=== PATIENT | female | born 1970 | race Caucasian/White ===

== ENCOUNTER → 2017-02-27 | Outpatient (CLI) | payer BC ==
--- NOTE | 2017-02-27 14:16 | MM ---
Reason for exam: screening (asymptomatic). Last mammogram was performed 2 years and 6 months ago. History: Family history of breast cancer in mother at age 80. Physical Findings: A clinical breast exam by your physician is recommended on an annual basis and results should be correlated with mammographic findings. MG Screening Mammo w CAD Bilateral CC and MLO view(s) were taken. Prior study comparison: August 30, 2014, bilateral MG screening mammo w CAD. February 23, 2013, bilateral digital screening mammo w/CAD. The breast tissue is heterogeneously dense. This may lower the sensitivity of mammography. There is no discrete abnormality. No significant changes when compared with prior studies. ASSESSMENT: Negative, BI-RAD 1 RECOMMENDATION: Routine screening mammogram of both breasts in 1 year.
== END ==
LOC: RADMAMWWP 12:33
PROVIDERS: ATTEND Obstetrics & Gynecology
DX: Z12.31 Encounter for screening mammogram for malignant neoplasm of breast (principal); Z80.3 Family history of malignant neoplasm of breast

== ENCOUNTER → 2018-03-31 | Outpatient (CLI) | payer BC ==
--- NOTE | 2018-03-31 12:01 | USB ---
Reason for exam: additional evaluation requested from abnormal screening. History: Family history of breast cancer in mother at age 80. Physical Findings: Nurse Summary: Patient complains of left breast pain before menstrual cysts upper outer quadrant (nurse mj). US Breast Workup Limited LT Left limited breast ultrasound including focal area of concern, retroareolar and axilla demonstrates a 0.8 x 0.5 x 0.3c oval cystic cluster at 12 o'clock, a 2.0 x 2.1 x 1.2cm oval, cystic cluster at 1 o'clock that correlates to mammographic finding and a 1.1 x 1.2 x 0.7cm oval, cystic lesion at 2 o'clock. These results were verbally communicated with the patient and result sheet given to the patient on 03/31/18. ASSESSMENT: Benign, BI-RAD 2 RECOMMENDATION: Return to routine screening mammogram schedule for both breasts.
== END | disposition home or self-care (01) ==
LOC: RADUSWWP 10:03
PROVIDERS: ATTEND Obstetrics & Gynecology
DX: R92.8 Other abnormal and inconclusive findings on diagnostic imaging of breast (principal)

== ENCOUNTER 2018-05-09 14:48 | Emergency (ER) | payer BC ==
[2018-05-09] MEDS ORDERED: KETOROLAC 30 MG/ML 1 ML VIAL IVP STA (16:54)
[2018-05-09] MEDS ORDERED: SODIUM CHLORIDE 0.9% 1,000 ML IV ONE (16:54)
--- NOTE | 2018-05-09 17:49 | ED ---
Extremity Problem HPI - General Chief complaint: Extremity Problem,Nontraumatic Stated complaint: Tingling hands and feet Time Seen by Provider: 05/09/18 16:41 Source: patient, RN notes reviewed, old records reviewed Mode of arrival: ambulatory Limitations: no limitations - History of Present Illness Initial comments: 47-year-old female multiple complaints complaining of the fever started 2 weeks ago. She also complains of a petechial-like rash over bilateral lower extremity 's. She saw a toddler lead teacher knee put her on steroids. Patient states she's been having diffuse joint pains within the hands and knees and elbows. She also complained of paresthesias down her legs. She states that she's had no recent fevers. She has been taking steroids since Friday she has a 12 day taper. 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 No blood work was obtained at that time. She denies any one focal cyst symptoms, denies any cough abdominal pain shortness of breath or chest pain. - Related Data Home Medications Medication Instructions Recorded Confirmed Cholecalciferol (Vitamin D3) 2,000 unit PO DAILY 03/04/18 05/09/18 [Vitamin D3] Acetaminophen [Tylenol Extra 500 mg PO BID PRN 05/09/18 05/09/18 Strength] predniSONE See Taper PO DIRECTED 05/09/18 05/09/18 Allergies Allergy/AdvReac Type Severity Reaction Status Date / Time codeine AdvReac Severe Nausea & Verified 05/09/18 17:56 Vomiting Review of Systems ROS Statement: Those systems with pertinent positive or pertinent negative responses have been documented in the HPI. ROS Other: All systems not noted in ROS Statement are negative. Past Medical History Past Medical History: No Reported History Additional Past Medical History / Comment(s): Seasonal allergies. 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 She has had to vaginal deliveries. History of Any Multi-Drug Resistant Organisms: None Reported Past Surgical History: Appendectomy, Breast Surgery, Tubal Ligation Additional Past Surgical History / Comment(s): appendix-1983,tub lig-1995 Past Psychological History: No Psychological Hx Reported Smoking Status: Never smoker Past Alcohol Use History: Occasional Past Drug Use History: None Reported - Past Family History Father Family Medical History: Cancer (lung,bone) Additional Family Medical History / Comment(s): lung,bone Mother Family Medical History: Cancer (breast at age82) Additional Family Medical History / Comment(s): breast General Exam - General Exam Comments Initial Comments: This is a 47-year-old female. Generally healthy. Alert and oriented. No significant distress. Limitations: no limitations Head exam: Present: atraumatic, normocephalic, normal inspection Eye exam: Present: normal appearance, PERRL, EOMI. Absent: scleral icterus, conjunctival injection, periorbital swelling ENT exam: Present: normal exam, mucous membranes moist Neck exam: Present: normal inspection. Absent: tenderness, meningismus, lymphadenopathy Respiratory exam: Present: normal lung sounds bilaterally. Absent: respiratory distress, wheezes, rales, rhonchi, stridor Cardiovascular Exam: Present: regular rate, normal rhythm, normal heart sounds. Absent: systolic murmur, diastolic murmur, rubs, gallop, clicks GI/Abdominal exam: Present: soft, normal bowel sounds. Absent: distended, tenderness, guarding, rebound, rigid Extremities exam: Present: normal inspection, full ROM, normal capillary refill , other (Patient has a sporadic small petechial-like rashes throughout the lower extremities past the knee.). Absent: tenderness, pedal edema, joint swelling, calf tenderness Back exam: Present: normal inspection Neurological exam: Present: alert, oriented X3, CN II-XII intact Psychiatric exam: Present: normal affect, normal mood Skin exam: Present: warm, dry, intact, normal color. Absent: rash Course Vital Signs 05/09/18 05/09/18 05/09/18 15:50 18:53 19:31 Temperature 98.1 F 98.2 F Pulse Rate 94 78 83 Respiratory 16 18 16 Rate Blood Pressure 151/91 149/85 154/96 O2 Sat by Pulse 97 98 96 Oximetry Medical Decision Making - Medical Decision Making 27-year-old female presents emergency Department with strange symptoms including a rash over bilateral extremities somewhat petechial-like, and diffuse joint pains and 1 day fever earlier in the week. She reports that she saw her toddler lead teacher and I have any thoughts on the rash. They did start her on steroids. She's been steroids for the past 4 days. The similar decided to pursue lab work. CBC and BMP are within normal limits. I did check for rheumatoid factor and AMA. Patient seems to have consultation symptoms consistent with an autoimmune disease. I also checked Lyme titers. At this time patient's vital signs are stable. I discussed case with Dr. Soria. He believes Patient may have contact dermatitis. At this time we will have the Patient follow-up with the vein specialist as well that she is appointment scheduled on Friday. Discussed return parameters. Patient understands treatment plan will comply. Return parameters were discussed. - Lab Data Result diagrams: 05/09/18 17:30 05/09/18 17:30 Lab Results 05/09/18 05/09/18 05/09/18 Range/Units 17:30 17:30 17:30 WBC 6.2 (3.8-10.6) k/uL RBC 4.62 (3.80-5.40) m/uL Hgb 14.4 (11.4-16.0) gm/dL Hct 43.2 (34.0-46.0) % MCV 93.7 (80.0-100.0) fL MCH 31.3 (25.0-35.0) pg MCHC 33.4 (31.0-37.0) g/dL RDW 12.5 (11.5-15.5) % Plt Count 277 (150-450) k/uL Neutrophils % 88 % Lymphocytes % 7 % Monocytes % 4 % Eosinophils % 0 % Basophils % 0 % Neutrophils # 5.5 (1.3-7.7) k/uL Lymphocytes # 0.5 L (1.0-4.8) k/uL Monocytes # 0.2 (0-1.0) k/uL Eosinophils # 0.0 (0-0.7) k/uL Basophils # 0.0 (0-0.2) k/uL Sodium 141 (137-145) mmol/L Potassium 4.1 (3.5-5.1) mmol/L Chloride 99 (98-107) mmol/L Carbon Dioxide 30 (22-30) mmol/L Anion Gap 12 mmol/L BUN 10 (7-17) mg/dL Creatinine 0.50 L (0.52-1.04) mg/dL Est GFR (CKD-EPI)AfAm >90 (>60 ml/min/1.73 sqM) Est GFR (CKD-EPI)NonAf >90 (>60 ml/min/1.73 sqM) Glucose 187 H (74-99) mg/dL Calcium 9.9 (8.4-10.2) mg/dL Total Bilirubin 0.5 (0.2-1.3) mg/dL AST 32 (14-36) U/L ALT 44 (9-52) U/L Alkaline Phosphatase 64 (38-126) U/L Total Protein 7.0 (6.3-8.2) g/dL Albumin 4.5 (3.5-5.0) g/dL Rheumatoid Factor (0-15) IU/mL Heterophile Antibody Negative (Negative) 05/09/18 Range/Units 17:30 WBC (3.8-10.6) k/uL RBC (3.80-5.40) m/uL Hgb (11.4-16.0) gm/dL Hct (34.0-46.0) % MCV (80.0-100.0) fL MCH (25.0-35.0) pg MCHC (31.0-37.0) g/dL RDW (11.5-15.5) % Plt Count (150-450) k/uL Neutrophils % % Lymphocytes % % Monocytes % % Eosinophils % % Basophils % % Neutrophils # (1.3-7.7) k/uL Lymphocytes # (1.0-4.8) k/uL Monocytes # (0-1.0) k/uL Eosinophils # (0-0.7) k/uL Basophils # (0-0.2) k/uL Sodium (137-145) mmol/L Potassium (3.5-5.1) mmol/L Chloride (98-107) mmol/L Carbon Dioxide (22-30) mmol/L Anion Gap mmol/L BUN (7-17) mg/dL Creatinine (0.52-1.04) mg/dL Est GFR (CKD-EPI)AfAm (>60 ml/min/1.73 sqM) Est GFR (CKD-EPI)NonAf (>60 ml/min/1.73 sqM) Glucose (74-99) mg/dL Calcium (8.4-10.2) mg/dL Total Bilirubin (0.2-1.3) mg/dL AST (14-36) U/L ALT (9-52) U/L Alkaline Phosphatase (38-126) U/L Total Protein (6.3-8.2) g/dL Albumin (3.5-5.0) g/dL Rheumatoid Factor 9 (0-15) IU/mL Heterophile Antibody (Negative) Disposition Clinical Impression: Rash and nonspecific skin eruption, Joint pain Disposition: HOME SELF-CARE Condition: Good Instructions: Dermatitis (ED) Additional Instructions: Patient advised to follow-up with primary care physician and pain specialist. Patient should take Motrin for pain. He can take Claritin and Benadryl. No hot showers. Return to the emergency department if any alarming signs or symptoms occur. Is patient prescribed a controlled substance at d/c from ED?: No When asked, does pt state using other controlled substances?: No If prescribed controlled substance>3 days was MAPS reviewed?: No If opioid is for acute pain is fill amount 7 days or less?: No If Rx opioid, was Start Talking consent form obtained?: No Referrals: Alfredo Camacho DO [Primary Care Provider] - 1-2 days Time of Disposition: 18:56
[2018-05-09 18:05] LABS: Basophils % (A) 0 %; Eosinophils % (A) 0 %; HCT 43.2 % (34.0-46.0); HGB 14.4 gm/dL (11.4-16.0); Lymphocytes # (A) 0.5 k/uL (1.0-4.8); Lymphocytes % (A) 7 %; MCH 31.3 pg (25.0-35.0); MCHC 33.4 g/dL (31.0-37.0); MCV 93.7 fL (80.0-100.0); Mean Platelet Volume 6.7; Monocytes # (A) 0.2 k/uL (0-1.0); Monocytes % (A) 4 %; Neutrophils # (A) 5.5 k/uL (1.3-7.7); Neutrophils % (A) 88 %; Platelet Count 277 k/uL (150-450); RBC 4.62 m/uL (3.80-5.40); RDW 12.5 % (11.5-15.5); WBC 6.2 k/uL (3.8-10.6)
[2018-05-09 18:24] LABS: ALT 44 U/L (9-52); AST 32 U/L (14-36); Albumin 4.5 g/dL (3.5-5.0); Alkaline Phosphatase 64 U/L (38-126); Anion Gap 12 mmol/L; Blood Urea Nitrogen 10 mg/dL (7-17); Calcium 9.9 mg/dL (8.4-10.2); Carbon Dioxide 30 mmol/L (22-30); Chloride 99 mmol/L (98-107); Glucose 187 mg/dL (74-99); Potassium 4.1 mmol/L (3.5-5.1); Sodium 141 mmol/L (137-145); Total Bilirubin 0.5 mg/dL (0.2-1.3)
[2018-05-09 19:33] VITALS: BP 154/96; PULSE 83; RESP 16; TEMP 98.2
[2018-05-09 22:55] LABS: Rheumatoid Factor 9 IU/mL (0-15)
== END 2018-05-09 19:35 | disposition home or self-care (01) ==
LOC: EC 14:48
DX: R21 Rash and other nonspecific skin eruption (principal); R50.9 Fever, unspecified; R20.2 Paresthesia of skin; M25.521 Pain in right elbow; M25.522 Pain in left elbow; M25.541 Pain in joints of right hand; M25.542 Pain in joints of left hand; M25.561 Pain in right knee; M25.562 Pain in left knee; Z79.52 Long term (current) use of systemic steroids; Z79.899 Other long term (current) drug therapy; Z88.5 Allergy status to narcotic agent
CPT/HCPCS: 36415; 80053; 85025; 86308; 86431; 86618; 86038; 99284; 96374; 96361; J1885

== ENCOUNTER → 2019-06-08 | Outpatient (CLI) | payer BC ==
[2019-06-08 11:10] VITALS: BP 142/87; PULSE 78; RESP 16; TEMP 98.2; BMI 20.5
--- NOTE | 2019-06-08 11:50 | P.HPOB ---
History of Present Illness H&P Date: 06/08/19 Chief Complaint: The patient is here for her routine gynecologic exam and ma mmogram. This is a 48-year-old G2 PII within LMP of 05/05/2019. She is status post tubal ligation. She is without gynecologic complaints and states her menstrual periods are regular. Review of Systems The patient's weight has been stable over the last year. She denies respiratory, cardiac, or G.I. problems. Past Medical History Past Medical History: No Reported History Additional Past Medical History / Comment(s): Seasonal allergies. Psoriatic arthritis. 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 She has had 2 vaginal deliveries. History of Any Multi-Drug Resistant Organisms: None Reported Past Surgical History: Appendectomy, Breast Surgery, Tubal Ligation Additional Past Surgical History / Comment(s): appendix-1983,tub lig-1995 Past Psychological History: No Psychological Hx Reported Smoking Status: Never smoker Past Alcohol Use History: Occasional (5 per week) Past Drug Use History: None Reported Additional History: She has been since 1998. She and her on a [employer]. - Past Family History Father Family Medical History: Cancer Additional Family Medical History / Comment(s): lung,bone Mother Family Medical History: Cancer Additional Family Medical History / Comment(s): breast cancer at age 82. Medications and Allergies Home Medications Medication Instructions Recorded Confirmed Type Cholecalciferol (Vitamin D3) 2,000 unit PO DAILY 03/04/18 06/08/19 History [Vitamin D3] Folic Acid 1 mg PO DAILY 06/08/19 06/08/19 History Methotrexate Sodium [Methotrexate] 12.5 mg PO WEEKLY 06/08/19 06/08/19 History Allergies Allergy/AdvReac Type Severity Reaction Status Date / Time codeine AdvReac Severe Nausea & Verified 05/09/18 17:56 Vomiting Exam Vital Signs Temp Pulse Resp BP Pulse Ox 06/08/19 11:06 98.2 F 78 16 142/87 96 Blood pressure 142/87, height 5'5", weight 123 pounds, BMI 21, temperature 98.2, pulse 78, pulse oximeter 96%. This is a well-developed well-nourished white female who is alert and oriented times 3 in no acute distress. HEENT: Within normal limits. NECK: Supple without mass or thyromegaly. CHEST AND LUNGS: Clear to auscultation. HEART: Regular rate and rhythm. BREASTS: Are without mass or discharge. AXILLARY EXAM: Negative for adenopathy. BACK: Negative for CVA tenderness. ABDOMEN: Soft, nontender, without palpable masses. PELVIC EXAM: Normal external genitalia. Cervix and vagina appear normal. There is no unusual discharge. There is no evidence of prolapse. The uterus is midposition, nongravid size and nontender. There are no palpable adnexal masses or tenderness. RECTAL EXAM: negative for mass or tenderness and is negative for occult blood. EXTREMITIES: Nontender. IMPRESSION: 1. 48-year-old female with normal gynecologic exam. 2. She is status post tubal sterilization. PLAN: 1. Pap smear was performed. 2. Self breast awareness was discussed with the patient. 3. Screening mammogram will be done today. 4. Osteoporosis prevention was discussed. I have stressed the importance of adequate calcium, vitamin D and regular exercise. Recommended amounts of calcium and vitamin D were also discussed. 5. Her mildly elevated blood pressure was discussed. I recommended that she check her own blood pressures at home on a regular basis and follow up with Dr. Camacho for blood pressure elevations. 6. She was advised to return in one year for her annual well woman exam.
--- NOTE | 2019-06-10 08:40 | MM ---
Reason for exam: screening (asymptomatic). Last mammogram was performed 1 year and 3 months ago. History: Family history of breast cancer in mother at age 80. Physical Findings: A clinical breast exam by your physician is recommended on an annual basis and results should be correlated with mammographic findings. MG Screening Mammo w CAD Bilateral CC and MLO view(s) were taken. Prior study comparison: March 04, 2018, bilateral MG screening mammo w CAD. February 27, 2017, bilateral MG screening mammo w CAD. The breast tissue is heterogeneously dense. This may lower the sensitivity of mammography. No suspicious calcifications are seen. Enlarging probable cysts upper ouer quadrant left breast. ASSESSMENT: Incomplete: need additional imaging evaluation, BI-RAD 0 RECOMMENDATION: Ultrasound of the left breast. [facility] will attempt to contact patient to return for ultrasound.
== END | disposition home or self-care (01) ==
LOC: WWCWWP 10:35
PROVIDERS: ATTEND Obstetrics & Gynecology
DX: Z12.31 Encounter for screening mammogram for malignant neoplasm of breast (principal)
CPT/HCPCS: 77067

== ENCOUNTER → 2019-06-22 | Outpatient (CLI) | payer BC ==
--- NOTE | 2019-06-22 11:45 | USB ---
Reason for exam: additional evaluation requested from abnormal screening. History: Family history of breast cancer in mother at age 80. Physical Findings: Nurse Summary: x 3 palpable (nurse kp). US Breast Workup Limited LT Left limited breast ultrasound including focal area of concern, retroareolar and axilla demonstrates a 0.7 x 0.4 x 0.5cm oval, cluster, cystic lesion at 12 o'clock BB, a 1.9 x 2.6 x 1.4cm oval, cluster, cystic lesion at 1 o'clock BB< a 1.9 x 2.2 x 1.1cm oval, cystic lesion at 2 o'clock BB, a 0.4 x 0.4 x 0.4cm oval, cystic lesion at the posterior nipple and a 1.5 x 1.3 x 0.6cm axilla nodes. All appear as benign cysts. These results were verbally communicated with the patient and result sheet given to the patient on 06/22/19. ASSESSMENT: Benign, BI-RAD 2 RECOMMENDATION: Return to routine screening mammogram schedule for both breasts.
== END | disposition home or self-care (01) ==
LOC: RADUSWWP 10:20
PROVIDERS: ATTEND Obstetrics & Gynecology
DX: R92.8 Other abnormal and inconclusive findings on diagnostic imaging of breast (principal)

== ENCOUNTER → 2019-11-24 | Outpatient (CLI) | payer BC ==
[2019-11-24 11:38] VITALS: BP 136/84; PULSE 106; RESP 16; TEMP 98.2
--- NOTE | 2019-11-24 12:22 | P.PN ---
Progress Note - Text Progress Note Date: 11/24/19 Chief Complaint: Left breast lump since yesterday. HPI: This is a 49-year-old with an LMP of approximately 11/05/2019. She is status post tubal ligation and states her menstrual periods are regular every month. Yesterday evening she noticed a lump in the left breast around the 12 o'clock position. She states the lump felt to be about quarter size and was raised. She denies any significant pain but the nipples seems sensitive. She denies any nipple discharge or bleeding. She thinks this size is slightly smaller today than it was yesterday. She has never had anything like this in the past. Her mother had breast cancer in her 80s. ROS: Weight has been stable. She denies respiratory, cardiac, or GI problems. PE: Blood pressure: 136/84, Height: 5 feet 5 inches, Weight: 124 pounds, Temperature: 98.2, Pulse: 106. Pulse oximeter 97%. This is a well developed, well nourished, White female who is alert and orientedx3, in no acute distress. Breast exam: There is a palpable breast mass at the 12 o'clock position approximately 3 cm superior to the areola. The mass measures 3.2 x 4.0 cm and is somewhat firm and nontender. It is minimally mobile. There are no other palpable masses in the breasts. Nipples are centrally inverted and the patient states they have been this way for many years. There is no nipple discharge. There is no unusual puckering or dimpling. Axillary exam is normal bilaterally. Additional studies: Screening mammogram done on 06/08/2019 required a left breast ultrasound which was done on 06/22/2019. The left breast ultrasound done at that time showed multiple small benign appearing cysts measuring approximately 2 cm or less. Impression: 1. 49-year-old premenopausal female with a 4 x 3 cm left breast mass which was a very recent development yesterday. Differential diagnosis will include benign breast cyst or other breast neoplasm. 2. Family history of breast cancer in her mother. Plan: 1. Left breast ultrasound will be done today. 2. Consider referral to a surgeon for evaluation after ultrasound. Time spent with the patient: 15 minutes
--- NOTE | 2019-11-24 13:11 | USB ---
Reason for exam: clinical finding. History: Family history of breast cancer in mother at age 80. Physical Findings: Dr. Diaz did breast exam. US Breast Limited LT Left limited breast ultrasound including focal area of concern, retroareolar and axilla demonstrates a 1.9 x 3.3 x 1.8cm cystic lesion at 1 o'clock and a 1.8 x 2.0 x 1.3cm cystic lesion at 2 o'clock. These results were verbally communicated with the patient and result sheet given to the patient on 11/24/19. ASSESSMENT: Benign, BI-RAD 2 RECOMMENDATION: Clinical management of the left breast. Manage patient on a clinical basis.
== END | disposition home or self-care (01) ==
LOC: WWCWWP 11:07
PROVIDERS: ATTEND Obstetrics & Gynecology
DX: N63.21 Unspecified lump in the left breast, upper outer quadrant (principal); N63.22 Unspecified lump in the left breast, upper inner quadrant

== ENCOUNTER → 2019-11-24 | Outpatient (CLI) | payer BC ==
[2019-11-24 13:06] VITALS: BP 136/84; PULSE 106; RESP 16; TEMP 98.2
--- NOTE | 2019-11-24 13:31 | P.GSHP ---
History of Present Illness H&P Date: 11/24/19 Chief Complaint: lump in left breast Denise is a 49 year old female who noted a swelling in her left breast last night. The patient states it is slightly tender. She has never had anything like this in the past. Nothing of concern in the right breast. The patient denies any trauma or infection in the breast. Her last mammogram was in May 2019. This was felt to be incomplete and an ultrasound of the left breast was recommended nothing radiographically of concern was identified in the right breast. Ultrasound of the left breast was performed and 8619. This revealed multiple cystic clusters. This was felt to be benign BIRADS 2 and routine screening of both breast was recommended. caffiene: pop, coffee/daily smoke: none chocolate: daily hormones: none takes over the counter medication for menopause Family History: mother: breast cancer in her 80's father: lung cancer Hormonl history: menarche: 12 , breast fed: no, first born at 23 menopause: still having regular periods BCP: 2 years hormones: none Past surgical history: 1. Appendectomy 2. Tonsillectomy Medical history: Negative Social history: Smoke: Negative Alcohol: Occasional Drugs: Negative - Constitutional Constitutional: Denies chills, Denies fever - EENT Eyes: denies blurred vision, denies pain Ears: bilateral: tinnitus, deny: decreased hearing Ears, nose, mouth and throat: Denies headache, Denies sore throat - Breasts Comment: history of breast cyst, - Cardiovascular Cardiovascular: Denies chest pain, Denies shortness of breath - Respiratory Respiratory: Denies cough, Denies 7 - Gastrointestinal Gastrointestinal: Denies abdominal pain, Denies diarrhea, Denies nausea, Denies vomiting - Genitourinary (Female) Genitourinary: Denies dysuria, Denies hematuria - Menstruation Menstruation: Reports period normal - Musculoskeletal Comment: Psoriatic arthritis, goes to physical therapy sciatica Musculoskeletal: Denies myalgias - Integumentary Integumentary: Denies pruritus, Denies rash - Neurological Comment: right foot sciatic nerve pain Neurological: Denies numbness, Denies weakness - Psychiatric Psychiatric: Denies anxiety, Denies depression - Endocrine Endocrine: Denies fatigue, Denies weight change - Hematologic/Lymphatic Comment: none - Allergic/Immunologic Allergic/Immunologic: Reports seasonal allergies Past Medical History Past Medical History: No Reported History Additional Past Medical History / Comment(s): Seasonal allergies. Psoriatic arthritis. 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 She has had 2 vaginal deliveries. History of Any Multi-Drug Resistant Organisms: None Reported Past Surgical History: Appendectomy, Breast Surgery, Tubal Ligation Additional Past Surgical History / Comment(s): appendix-1983,tub lig-1995 Past Psychological History: No Psychological Hx Reported Smoking Status: Never smoker Past Alcohol Use History: Occasional Past Drug Use History: None Reported - Past Family History Father Family Medical History: Cancer Additional Family Medical History / Comment(s): lung,bone Mother Family Medical History: Cancer Additional Family Medical History / Comment(s): breast cancer at age 82. Medications and Allergies Home Medications Medication Instructions Recorded Confirmed Type Cholecalciferol (Vitamin D3) 2,000 unit PO DAILY 03/04/18 11/24/19 History [Vitamin D3] Folic Acid 1 mg PO DAILY 06/08/19 11/24/19 History Methotrexate Sodium [Methotrexate] 12.5 mg PO WEEKLY 06/08/19 11/24/19 History Allergies Allergy/AdvReac Type Severity Reaction Status Date / Time codeine AdvReac Severe Nausea & Verified 11/24/19 12:59 Vomiting Surgical - Exam BMI 20.6 - General well developed, well nourished, no distress - Eyes normal ocular movement - ENT no hearing loss, no congestion - Neck no masses, trachea midline, no lymphadectomy, no venous distension - Respiratory normal expansion, normal respiratory effort, clear to auscultation - Cardiovascular Rhythm: regular Heart Sounds: normal: S1, S2 - Abdomen Abdomen: soft, non tender, no guarding, no rigid, no rebound - Integumentary normal turgor - Neurologic no disoriented, no combative - Musculoskeletal normal gait, normal posture - Psychiatric oriented to time, oriented to person, oriented to place, speech is normal, memory intact breast: Right breast: Multi-positional exam fibrocystic changes, no dominant masses or nodules of concern Right axilla: No adenopathy of concern Left breast: Multi-positional exam increased nodularity at the 12 o'clock position approximately 3 cm in size no dominant masses or nodules of concern otherwise Left axilla: No adenopathy of concern Results mammogram and ultrasound results reviewed Assessment and Plan Assessment: Impression: 1. mass left breast 2. fibrocystic breast changes 3. talked about fibro-cystic changes related to caffeine and theophylline 4. family history of breast cancer 5. familh history of cancer Plan: 1. aspiration of breast cyst left at 12:00 2. Patient counseled to decrease caffeine and theophylline intake 3. Patient will follow-up to 2 weeks to see if cyst has recurred CC: Dr. Camacho, Dr. Diaz encounter 30 minutes, > 50% of time spent in planning and counseling Time with Patient: Greater than 30
--- NOTE | 2019-11-24 13:35 | P.PCN ---
Date of Procedure: 11/24/19 Preoperative Diagnosis: Cyst left breast Postoperative Diagnosis: same Procedure(s) Performed: Aspiration cyst left breast Surgeon: Chela Abebe Pathology: other (breast fluid) Condition: stable Disposition: same day Indications for Procedure: painful mass left breast increased in size Operative Findings: yellow fluid Description of Procedure: The area of concern in the left breast was prepped using alcohol. A 22-gauge needle on a 10 mL syringe was used to aspirate the cystic lesion. The lesion was located in the 12 o'clock position. Approximately 5 mL of fluid was removed completely resolution of the cystic lesion. Patient tolerated procedure in stable condition. The cystic fluid was sent for pathology.
== END | disposition home or self-care (01) ==
LOC: WWCWWP 12:49
PROVIDERS: ATTEND Surgery
DX: N64.9 Disorder of breast, unspecified (principal)
CPT/HCPCS: 88108; 88305

== ENCOUNTER → 2021-05-08 | Outpatient (CLI) | payer BC ==
[2021-05-08 13:01] VITALS: BP 163/78; PULSE 81; RESP 18; TEMP 98.1
--- NOTE | 2021-05-08 13:51 | P.HPOB ---
History of Present Illness H&P Date: 05/08/21 Chief Complaint: The patient is here for her routine gynecologic exam and ma mmogram. This is a 50-year-old with an LMP of 05/05/2021. The patient states she has had about 4 yeast infections over the past year with some discharge and irritation. With her last yeast infection about 6 weeks ago, she took Diflucan with immediate relief. She is otherwise without complaints. Menstrual periods are regular every month. She denies hot flashes. She denies intermenstrual bleeding. Her last Pap smear done on 06/08/2019 was negative. Endometrial cells were noted, however her menstrual period started right about the time of her Pap smear testing. Review of Systems The patient has gained 9 pounds over the last year. She denies respiratory, cardiac, or G.I. problems. Past Medical History Past Medical History: No Reported History Additional Past Medical History / Comment(s): Seasonal allergies. Psoriatic arthritis. 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 She has had 2 vaginal deliveries. History of Any Multi-Drug Resistant Organisms: None Reported Past Surgical History: Appendectomy, Breast Surgery, Tubal Ligation Additional Past Surgical History / Comment(s): appendix-1983,tub lig-1995 Past Anesthesia/Blood Transfusion Reactions: No Reported Reaction Past Psychological History: No Psychological Hx Reported Smoking Status: Never smoker Past Alcohol Use History: Occasional (4 per week) Past Drug Use History: None Reported Additional History: She has been since 1998. She and her recently sold a [email or web address] business to their son. She does go to [place] during the winter. - Past Family History Father Family Medical History: Cancer Additional Family Medical History / Comment(s): lung,bone Mother Family Medical History: Cancer, Hypertension Additional Family Medical History / Comment(s): breast cancer at age 82. Medications and Allergies Home Medications Medication Instructions Recorded Confirmed Type Cholecalciferol (Vitamin D3) 2,000 unit PO DAILY 03/04/18 05/08/21 History [Vitamin D3] Folic Acid 1 mg PO DAILY 06/08/19 05/08/21 History metHOTREXate sodium [Methotrexate] 12.5 mg PO WEEKLY 06/08/19 05/08/21 History L.acidoph,Paracasei, B.lactis 1 each PO DAILY 06/22/21 06/22/21 History [Probiotic] Allergies Allergy/AdvReac Type Severity Reaction Status Date / Time codeine AdvReac Severe Nausea & Verified 05/08/21 12:52 Vomiting Exam Vital Signs Temp Pulse Resp BP Pulse Ox 05/08/21 12:53 98.1 F 81 18 163/78 100 Intake and Output 05/07/21 05/08/21 05/08/21 22:59 06:59 14:59 Other: Weight 59.874 kg Height 5 feet 5 inches, weight 132 pounds, BMI 22.0. This is a well-developed well-nourished white female who is alert and oriented times 3 in no acute distress. HEENT: Within normal limits. NECK: Supple without mass or thyromegaly. CHEST AND LUNGS: Clear to auscultation. HEART: Regular rate and rhythm. BREASTS: Are without mass or discharge. There is bilateral central nipple inversion which the patient states she has had for many years. AXILLARY EXAM: Negative for adenopathy. BACK: Negative for CVA tenderness. ABDOMEN: Soft, nontender, without palpable masses. PELVIC EXAM: Normal external genitalia. Cervix and vagina appear normal with minimal atrophy. There is no unusual discharge. There is no evidence of prolapse. The uterus is midposition, nongravid size and nontender. There are no palpable adnexal masses or tenderness. RECTAL EXAM: Rectovaginal exam is negative for mass or tenderness and is negative for occult blood. EXTREMITIES: Nontender. IMPRESSION: 1. 50-year-old perimenopausal female who is status post tubal ligation, with normal gynecologic exam. 2. Several yeast infections during the past year per the patient with no significant physical findings at this time and she is currently not having symptoms at this time. 3. Elevated blood pressure. PLAN: 1. Pap smear was deferred since she had a negative Pap smear and 06/08/2019. 2. Self breast awareness was discussed with the patient. 3. Screening mammogram was done today. 4. Diflucan 150 mg by mouth once if she develops typical yeast infection symptoms including discharge and irritation. She was instructed to call to be seen if she is not having typical symptoms or if she has several yeast infections. The prescription will be sent to [facility] pharmacy on [address] [facility]. There will be 2 refills. 5. Osteoporosis prevention was discussed. I have stressed the importance of adequate calcium, vitamin D and regular exercise. Recommended amounts of calcium and vitamin D were also discussed. 6. I have recommended screening colonoscopy. She states she will discuss this with her primary care physician and have them arrange for colorectal cancer screening. 7. We have discussed her elevated blood pressure. I have recommended that she check her own blood pressure on a regular basis and to follow up with her primary care physician regarding elevated blood pressures. She states she has been told on several occasions that her blood pressure was elevated. 8. She will keep track of her menstrual periods and call if menstrual problems. 9. She was advised to return in one year for her annual well woman exam.
--- NOTE | 2021-05-09 13:53 | MM ---
Reason for exam: screening (asymptomatic). Last mammogram was performed 1 year and 11 months ago. History: Family history of breast cancer in mother at age 80. Physical Findings: A clinical breast exam by your physician is recommended on an annual basis and results should be correlated with mammographic findings. MG Screening Mammo w CAD Bilateral CC and MLO view(s) were taken. Prior study comparison: June 08, 2019, bilateral MG screening mammo w CAD. March 04, 2018, bilateral MG screening mammo w CAD. February 27, 2017, bilateral MG screening mammo w CAD. The breast tissue is extremely dense which could obscure a lesion on mammography. Focal asymmetry left upper outer quadrant, stable. No significant changes when compared with prior studies. ASSESSMENT: Benign, BI-RAD 2 RECOMMENDATION: Routine screening mammogram of both breasts in 1 year.
== END ==
LOC: WWCWWP 12:37
PROVIDERS: ATTEND Obstetrics & Gynecology
DX: Z12.31 Encounter for screening mammogram for malignant neoplasm of breast (principal); Z01.419 Encounter for gynecological examination (general) (routine) without abnormal findings; R03.0 Elevated blood-pressure reading, without diagnosis of hypertension; Z98.51 Tubal ligation status; Z80.3 Family history of malignant neoplasm of breast; Z78.0 Asymptomatic menopausal state; Z88.5 Allergy status to narcotic agent
CPT/HCPCS: 77067

== ENCOUNTER → 2024-11-16 | Outpatient (CLI) | payer BC ==
--- NOTE | 2024-11-16 10:20 | P.PN ---
Progress Note - Text Progress Note Date: 11/16/24 Patient has called and states she believes she has a yeast infection. She has gone throughout this year without another yeast infection. She has a slight discharge without color and vulvar itching. Suspected Carla vaginitis. Plan: Diflucan 150 mg p.o. every 48 hours x 2 doses. The patient states she has her annual well woman examination on 11/30/2024. The electronic prescription will be sent to [facility] pharmacy on [facility]
== END ==
LOC: WWCWWP 08:59
PROVIDERS: ATTEND Obstetrics & Gynecology
DX: B37.9 Candidiasis, unspecified (principal); Z88.5 Allergy status to narcotic agent

== ENCOUNTER → 2024-11-30 | Outpatient (CLI) | payer BC ==
[2024-11-30 11:05] VITALS: BP 155/91; PULSE 81; RESP 17; TEMP 97.9
--- NOTE | 2024-11-30 11:26 | P.HPOB ---
History of Present Illness H&P Date: 11/30/24 Chief Complaint: The patient is here for her routine gynecologic exam and ma mmogram. This is a 54-year-old G2, P2 with an LMP of August 2024. The patient is status post tubal ligation. She states her menstrual periods have spaced out even more and have been about every 2 to 3 months during the past year. She denies any significant hot flashes. She was recently treated for a yeast infection about 2 weeks ago and this has improved. Review of Systems The patient's weight has been stable over the last year. She denies respiratory, cardiac, or G.I. problems. Past Medical History Past Medical History: No Reported History Additional Past Medical History / Comment(s): Seasonal allergies. Psoriatic arthritis. 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 She has had 2 vaginal deliveries. History of Any Multi-Drug Resistant Organisms: None Reported Past Surgical History: Appendectomy, Breast Surgery, Tubal Ligation Additional Past Surgical History / Comment(s): appendix-1983,tub lig-1995. Breast cyst aspiration. Past Anesthesia/Blood Transfusion Reactions: No Reported Reaction Past Psychological History: No Psychological Hx Reported Smoking Status: Never smoker Past Alcohol Use History: Occasional (About 4 to 6 drinks per week.) Past Drug Use History: None Reported Additional History: She has been since 1998. She and her are retired and they typically go to [place] for the winter. - Past Family History Father Family Medical History: Cancer Additional Family Medical History / Comment(s): lung,bone Mother Family Medical History: Cancer, Hypertension Additional Family Medical History / Comment(s): breast cancer at age 82. Medications and Allergies Home Medications Medication Instructions Recorded Confirmed Type Cholecalciferol (Vitamin D3) 2,000 unit PO DAILY 03/04/18 03/25/23 History [Vitamin D3] L.acidoph,Paracasei, B.lactis 1 each PO DAILY 05/08/21 03/25/23 History [Probiotic] Allergies Allergy/AdvReac Type Severity Reaction Status Date / Time codeine AdvReac Severe Nausea & Verified 11/30/24 11:00 Vomiting Exam Vital Signs Temp Pulse Resp BP Pulse Ox 11/30/24 11:02 97.9 F 81 17 155/91 97 Intake and Output 01/13/25 01/14/25 01/14/25 22:59 06:59 14:59 Other: Weight 63.049 kg Height 5 feet 5 inches, weight 139 pounds, BMI 23.1. This is a well-developed well-nourished white female who is alert and oriented times 3 in no acute distress. HEENT: Within normal limits. NECK: Supple without mass or thyromegaly. CHEST AND LUNGS: Clear to auscultation. HEART: Regular rate and rhythm. BREASTS: Are without mass or discharge. There is bilateral central nipple in version which the patient states she has had for many years. AXILLARY EXAM: Negative for adenopathy. BACK: Negative for CVA tenderness. ABDOMEN: Soft, nontender, without palpable masses. PELVIC EXAM: Normal external genitalia with minimal atrophy. Cervix and vagina appear normal with minimal atrophy. There is no unusual discharge. There is no evidence of prolapse. The uterus is midposition, nongravid size and nontender. There are no palpable adnexal masses or tenderness. RECTAL EXAM: Rectovaginal exam is negative for mass or tenderness and is negative for occult blood. EXTREMITIES: Nontender. IMPRESSION: 1. 54-year-old perimenopausal female with oligomenorrhea, whose is status post tubal ligation, with normal gynecologic exam. 2. Family history of breast cancer in her mother. PLAN: 1. Pap smear was deferred since she had a negative Pap smear cotest on 03/25/2023. 2. Self breast awareness was discussed with the patient. We have also discussed symptoms associated with inflammatory breast cancer. 3. Screening mammogram will be done today. 4. Osteoporosis prevention was discussed. I have stressed the importance of adequate calcium, vitamin D and regular exercise. Recommended amounts of calcium and vitamin D were also discussed. 5. She will keep a menstrual calendar and call if menstrual problems. 6. She was advised to return in one year for her annual well woman exam.
--- NOTE | 2024-11-30 11:55 | MM ---
Reason for Exam: Screening (asymptomatic). Last mammogram was performed 1 year(s) and 8 month(s) ago. Patient History: Menarche at age 12. First Full-Term at age 23. Mother had breast cancer, age 80. Risk Values: Bethany 5 year model risk: 2.2%. NCI Lifetime model risk: 15.4%. Prior Study Comparison: 06/08/2019 Bilateral Screening Mammogram, [facility]. 05/08/2021 Bilateral Screening Mammogram, [facility]. 03/25/2023 Bilateral MG screening mammo w CAD, [facility]. Tissue Density: The breasts are heterogeneously dense, which may obscure small masses. Findings: Analyzed By CAD. There is no suspicious group of microcalcifications or new suspicious mass in either breast. Overall Assessment: Negative, BI-RAD 1 Management: Screening Mammogram of both breasts in 1 year. Some advise ultrasound surveillance in patients with background dense tissue. Patient should continue monthly self-breast exams. A clinical breast exam by your physician is recommended on an annual basis. This exam should not preclude additional follow-up of suspicious palpable abnormalities. Note on Bethany scores and lifetime risk: 1. A Bethany score greater than 3% is considered moderate risk. If this is the case, consider specialist referral to assess eligibility for a risk reducing agent. 2. If overall lifetime risk for the development of breast cancer is 20% or higher, the patient may qualify for future screening with alternating mammogram and breast MRI. [facility], , 11/30/2024 11:51 AM. Electronically signed and approved by: Blu Early M.D.
== END ==
LOC: WWCWWP 10:44
PROVIDERS: ATTEND Obstetrics & Gynecology
DX: N91.5 Oligomenorrhea, unspecified (principal); Z80.3 Family history of malignant neoplasm of breast; Z98.51 Tubal ligation status; Z88.5 Allergy status to narcotic agent
CPT/HCPCS: 77067